=== PATIENT | male | born 1935 | race Caucasian/White ===

== ENCOUNTER → 2017-10-04 12:18 | Outpatient (CLI) | payer MEDICARE, SELFPAY ==
[2017-10-04 13:26] LABS: Absolute Neutrophil Count 2.6 X10^3/uL (2.0-7.7); Basophil# 0.04 X10^3/uL; Basophil% 0.9 % (0-1); Eosinophil# 0.13 X10^3/uL; Eosinophils% 2.8 % (0-5); Hematocrit 45.6 % (40-54); Hemoglobin 15.4 g/dl (13.0-16.5); Lymphocyte % 26.2 % (19-41); Mean Corp Hgb Conc 33.8 g/gl (32-36); Mean Corpuscular Hgb 30.6 pg (27.0-32.0); Mean Corpuscular Volume 90.5 fL (80-94); Mean Platelet Vol. 11.2 fl (6.2-12.0); Monocyte# 0.64 X10^3/uL; Neutrophil # 2.57 X10^3/uL (2.7-7.7); Neutrophil % 56.1 % (47-70); Platelet Count 117 K/mm3 (150-450); RBC Distribution Width CV 14.2 % (11.6-14.6); RBC Distribution Width SD 46.7 fl (35.1-43.9); Red Blood Count 5.04 M/mm3 (4.6-6.2); White Blood Count 4.6 K/mm3 (4.4-11.0)
[2017-10-04 13:29] LABS: POSITIVE COUNT NO; POSITIVE DIFFERENTIAL NO; POSITIVE MORPHOLOGY NO
[2017-10-04 14:00] LABS: ALB/GLOB Ratio 1.1 RATIO (0.9-2.4); AST(SGOT) 23 U/L (15-37); Alanine Aminotransfer ALT/SGPT 19 U/L (16-61); Albumin, Serum 4.1 g/dL (3.2-5.0); Alkaline Phosphatase 91 U/L (45-117); Anion Gap 7 (5-15); BUN 32 mg/dL (7-18); BUN/Creat Ratio 21.8 RATIO (10-20); Calcium,Total 8.6 mg/dL (8.5-10.1); Chloride 107 mmol/L (98-107); Creatinine, Serum 1.47 mg/dL (0.70-1.30); EST Glomerular Filtration Rate 49 mL/min (>60); Est Glom Filt Rate - Afr Amer 59 mL/min (>60); Globulin 3.6 g/dL (2.2-4.2); Glucose 80 mg/dL (74-106); PSA,Total - Annual Screen 1.06 ng/mL (0.00-4.00); Potassium 4.1 mmol/L (3.5-5.1); Protein, Total 7.7 g/dL (6.4-8.2); Sodium Level 143 mmol/L (136-145); Thyroid Stim Hormone (TSH) 2.74 uIU/mL (0.358-3.74)
== END ==
PROVIDERS: Family Provider Family Medicine; PCP Family Medicine; Visit Provider Family Medicine
DX: I25.10 Atherosclerotic heart disease of native coronary artery without angina pectoris (principal); R63.4 Abnormal weight loss; Z12.5 Encounter for screening for malignant neoplasm of prostate
CPT/HCPCS: 36415; 80053; 84153; 84443; 85025; G0103

== ENCOUNTER → 2017-11-09 13:27 | Outpatient (CLI) | payer MEDICARE, SELFPAY ==
--- NOTE | 2017-11-09 13:28 | STE_ITS ---
Reason For Study: S/P CABG Stress Results Protocol: Johny Protocol Maximum Predicted HR: 140 bpm Target HR: 119 bpm% Max imum Predicted HR: 108 % DurationHeart Rate Stage (mm:ss) (bpm) BP BASELINE 60 128/72 STAGE 1 3:00 12 7 162/80 STAGE 2 3:00 14 2 158/64 STAGE 3 0:15 15 1 / RECOVERY 87 152/74 Stress Duration: 6:15 mm:ss Maximum Stress HR: 151 bpm Baseline Echocardiogram Findings The estimated ejection fraction is 60 %. Stress Echo Wall motion Data Resting WMIntermediate WMStress WM Resting Wall Motion Wall Motion Stress No regional wall motion No regional wall motion abnormalities noted. abnormalities noted. EKG Data The baseline ECG demonstrates normal sinus rhythm with at rate of _ beats per minute. The patient exercised according to the regular Johny protocol for a total duration of 6:16. The maximum heart rate attained was 150 beats per minute. This was 107% of maximum predicted heart rate. The patient exercised into stage 3 of the Johny protocol. During stress, there were no ST or T wave changes noted to suggest ischemia. No clinical angina was noted. Interpretation Summary The estimated ejection fraction is 60 %. Normal adequate treadmill echocardiogram. Negative for ischemia by EKG and echocardiographic criteria. No anginal symptoms noted. Rare PVC noted. Appropriate blood pressure response to exercise. Average exercise capacity for age. Final LVEF of 75%. Test terminated due to target heart rate achieved and dyspnea. No complications. Ordering Physician: Vick Das Referring Physician: Vick Das Performed By: Linda Ortiz, HOLLYCS, RVT
== END ==
PROVIDERS: Family Provider Family Medicine; PCP Family Medicine; Visit Provider Internal Medicine Cardiovascular Disease
DX: I25.10 Atherosclerotic heart disease of native coronary artery without angina pectoris (principal); Z95.1 Presence of aortocoronary bypass graft; E78.5 Hyperlipidemia, unspecified
CPT/HCPCS: 93017; 93350

== ENCOUNTER → 2018-03-16 11:17 | Outpatient (CLI) | payer MEDICARE, SELFPAY | PROVIDERS: Family Provider Family Medicine; PCP Family Medicine; Visit Provider Family Medicine | DX: M25.552 Pain in left hip (principal); M54.5 Low back pain | CPT/HCPCS: 72110; 73502 ==

== ENCOUNTER → 2018-05-10 08:33 | Outpatient (CLI) | payer MEDICARE, SELFPAY ==
[2018-05-10 09:30] LABS: AST(SGOT) 16 U/L (15-37); Alanine Aminotransfer ALT/SGPT 22 U/L (16-61); Albumin, Serum 3.9 g/dL (3.2-5.0); Alkaline Phosphatase 98 U/L (45-117); Bilirubin, Direct 0.18 mg/dL (0.00-0.30); Cholesterol 130 mg/dL (200); Globulin 3.5 g/dL (2.2-4.2); High Density Lipoprotein 38 mg/dL; Protein, Total 7.4 g/dL (6.4-8.2); Triglycerides 122 mg/dL; Very Low Density Lipoprotein 24 mg/dL (5-40)
== END ==
PROVIDERS: Family Provider Family Medicine; PCP Family Medicine; Referring Provider Internal Medicine Cardiovascular Disease; Visit Provider Internal Medicine Cardiovascular Disease
DX: R07.9 Chest pain, unspecified (principal); E78.5 Hyperlipidemia, unspecified; I25.10 Atherosclerotic heart disease of native coronary artery without angina pectoris; Z95.1 Presence of aortocoronary bypass graft
CPT/HCPCS: 36415; 80061; 80076

== ENCOUNTER → 2019-03-02 | Outpatient (CLI) | payer MEDICARE, SELFPAY ==
[2018-11-15 10:43] VITALS: BMI 27.6
[2019-03-02 10:54] LABS: ALB/GLOB Ratio 1.3 RATIO (0.9-2.4); AST(SGOT) 21 U/L (15-37); Alanine Aminotransfer ALT/SGPT 18 U/L (16-61); Albumin, Serum 4.2 g/dL (3.2-5.0); Alkaline Phosphatase 96 U/L (45-117); Anion Gap 5 (5-15); BUN 26 mg/dL (7-18); BUN/Creat Ratio 16.7 RATIO (10-20); Calcium,Total 8.7 mg/dL (8.5-10.1); Chloride 110 mmol/L (98-107); Cholesterol 132 mg/dL (200); Creatinine, Serum 1.56 mg/dL (0.70-1.30); EST Glomerular Filtration Rate 46 mL/min (>60); Est Glom Filt Rate - Afr Amer 55 mL/min (>60); Globulin 3.3 g/dL (2.2-4.2); Glucose 104 mg/dL (74-106); High Density Lipoprotein 39 mg/dL; Potassium 4.3 mmol/L (3.5-5.1); Protein, Total 7.5 g/dL (6.4-8.2); Sodium Level 142 mmol/L (136-145); Triglycerides 140 mg/dL; Very Low Density Lipoprotein 28 mg/dL (5-40)
== END | disposition home or self-care (01) ==
LOC: LAB 09:47
PROVIDERS: Family Provider Family Medicine; PCP Family Medicine; Referring Provider Physician Assistant Medical; Visit Provider Physician Assistant Medical
DX: I10 Essential (primary) hypertension (principal); I25.10 Atherosclerotic heart disease of native coronary artery without angina pectoris; E78.5 Hyperlipidemia, unspecified; R07.9 Chest pain, unspecified
CPT/HCPCS: 36415; 80053; 80061

== ENCOUNTER → 2019-07-13 10:21 | Outpatient (CLI) | payer MEDICARE, SELFPAY ==
[2019-06-11 10:03] VITALS: BMI 26.5
--- NOTE | 2019-07-13 10:22 | STEWCON_ITS ---
Reason For Study: S/P CABG Stress Results Protocol: Johny Protocol WITH DEFINITY Maximum Predicted HR: 138 bpm Target HR: 117 bpm % Maximum Predicted HR: 96 % DurationHeart Rate Stage (mm:ss) (bpm) BP Comment BASELINE 62 128/78 STAGE 1 3:00 109 142/70 STAGE 2 3:00 133 144/60 RECOVERY 74 134/706 CC DEFINITY Stress Duration: 6:00 mm:ss Maximum Stress HR: 133 bpm Baseline Echocardiogram Findings The estimated ejection fraction is 55 %. Stress Echo Wall motion Data Resting WM Intermediate WM Stress WM Resting Wall Motion Wall Motion Stress Anterio-Basal: Mildly No regional wall motion hypokinetic. abnormalities noted. EKG Data The baseline ECG displays normal sinus rhythm. The patient exercised according to the regular Johny protocol for a total duration of 6:00. The maximum heart rate attained was 136 beats per minute. This was 98% of maximum predicted heart rate. The patient exercised into stage 3 of the Johny protocol. During stress, there were no ST or T wave changes noted to suggest ischemia. No clinical angina was noted. Interpretation Summary The estimated ejection fraction is 55 %. Anterio-Basal: Mildly hypokinetic Normal, adequate, treadmill echocardiogram. Negative for ischemia by EKG and echocardiographic criteria. No anginal symptoms noted. Rare PVCs noted. Patient had baseline anteroseptal hypokinesis which appeared to improve at peak exercise. Appropriate blood pressure response to exercise. Average exercise capacity for age. Test terminated due to the attainment target heart rate and leg discomfort. Decreased sensitivity due to poor echo windows requiring Definity agent. Patient tolerated procedure well. No complications. The study was technically difficult. Contrast injection was performed. Ordering Physician: Vick Das Referring Physician: Vick Das Performed By: Kristen Kibmle, SIMA, RVT
== END ==
PROVIDERS: Family Provider Family Medicine; PCP Family Medicine; Referring Provider Internal Medicine Cardiovascular Disease; Visit Provider Internal Medicine Cardiovascular Disease
DX: I25.10 Atherosclerotic heart disease of native coronary artery without angina pectoris (principal); E78.5 Hyperlipidemia, unspecified; I10 Essential (primary) hypertension; Z95.1 Presence of aortocoronary bypass graft
CPT/HCPCS: 93017; 93350; Q9957; A4216; C8928

== ENCOUNTER → 2020-03-28 11:33 | Outpatient (CLI) | payer MEDICARE, SELFPAY ==
[2020-03-28 10:13] VITALS: BMI 24.7
[2020-03-28 15:24] LABS: Absolute Lymphocyte Count 1.11 X10^3/uL (0.83-4.51); Absolute Neutrophil Count 3.4 X10^3/uL (2.0-7.7); Basophil# 0.06 X10^3/uL; Basophil% 1.2 % (0-1); Eosinophil# 0.07 X10^3/uL; Eosinophils% 1.4 % (0-5); Hematocrit 42.8 % (40-54); Hemoglobin 13.9 g/dL (13.0-16.5); Lymphocyte # 1.11 X10^3/ul (4.0); Mean Corp Hgb Conc 32.5 g/dL (32-36); Mean Corpuscular Hgb 30.6 pg (27.0-32.0); Mean Corpuscular Volume 94.3 fL (80-94); Monocyte# 0.42 X10^3/uL; Monocyte% 8.3 % (0-10); NRBC Flagged by Analyzer 0 % (0-5); Neutrophil # 3.37 X10^3/uL (2.7-7.7); Neutrophil % 66.9 % (47-70); Platelet Count 126 K/mm3 (150-450); RBC Distribution Width CV 13.2 % (11.6-14.6); RBC Distribution Width SD 45.4 fl (35.1-43.9); Red Blood Count 4.54 M/mm3 (4.6-6.2)
[2020-03-28 16:06] LABS: ALB/GLOB Ratio 1.4 RATIO (0.9-2.4); AST(SGOT) 20 U/L (15-37); Alanine Aminotransfer ALT/SGPT 18 U/L (16-61); Albumin, Serum 4.2 g/dL (3.2-5.0); Alkaline Phosphatase 109 U/L (45-117); Anion Gap 5 (5-15); BUN 30 mg/dL (7-18); Chloride 110 mmol/L (98-107); Creatinine, Serum 1.58 mg/dL (0.70-1.30); EST Glomerular Filtration Rate 45 mL/min (>60); Est Glom Filt Rate - Afr Amer 54 mL/min (>60); Globulin 3.1 g/dL (2.2-4.2); Glucose 108 mg/dL (74-106); Potassium 4.2 mmol/L (3.5-5.1); Prealbumin 22.2 mg/dL (20.0-40.0); Protein, Total 7.3 g/dL (6.4-8.2); Sodium Level 142 mmol/L (136-145)
== END ==
PROVIDERS: PCP Family Medicine; Visit Provider Family Medicine
DX: I25.10 Atherosclerotic heart disease of native coronary artery without angina pectoris (principal); N18.3 Chronic kidney disease, stage 3 (moderate); R63.4 Abnormal weight loss; Z12.5 Encounter for screening for malignant neoplasm of prostate
CPT/HCPCS: 36415; 80053; 84134; 84153; 84443; 85025; G0103

== ENCOUNTER → 2020-04-09 13:41 | Outpatient (CLI) | payer MEDICARE, SELFPAY ==
[2020-03-28 10:13] VITALS: BMI 24.7
--- NOTE | 2020-04-09 13:48 | CDU_ITS ---
Reason For Study: LIGHTHEADEDNESS Rt. Velocities/BP Lt. Velocities/BP Prox CCA 72/15 cm/sec. Prox CCA 62/13 cm/sec. Mid CCA 107/19 cm/sec. Mid CCA 99/18 cm/sec. Dist CCA 87/15 cm/sec. Dist CCA 78/22 cm/sec. Prox ICA 105/23 cm/sec. Prox ICA 73/22 cm/sec. Mid ICA 87/22 cm/sec. Mid ICA 83/26 cm/sec. Dist ICA 113/26 cm/sec. Dist ICA 83/21 cm/sec. Rt. ICA/CCA = 1.3. Lt. ICA/CCA = 1.1. Prox ECA 103/9 cm/sec. Prox ECA 97/6 cm/sec. Rt. Vert. 41/0 cm/sec. Lt. Vert. 58/15 cm/sec. Right Extracranial There is homogeneous, smooth atherosclerotic plaque noted in the right common carotid artery. There is heterogeneous, irregular atherosclerotic plaque noted in the right internal carotid artery. There is homogeneous, smooth atherosclerotic plaque noted in the right internal carotid artery. There is homogeneous, smooth atherosclerotic plaque noted in the right external carotid artery. Antegrade flow is noted in the right vertebral artery. Left Extracranial There is homogeneous, smooth atherosclerotic plaque noted in the left common carotid artery. There is homogeneous, smooth atherosclerotic plaque noted in the left internal carotid artery. There is homogeneous, smooth atherosclerotic plaque noted in the left external carotid artery. Antegrade flow is noted in the left vertebral artery. Procedure Carotid Duplex 06030. Exam performed in department. Interpretation Summary Minimal irregular plague at the proximal right internal carotid with <5O% stenosis <50% stenosis right external carotid Smooth plague at the proximal left internal carotid with <50% stenosis <50% stenosis left external carotid Patent, antegrade vertebrals bilaterally Ordering Physician: Grady Kimble Referring Physician: JOSE CAMERON Performed By: Linda Ortiz RDCS, RVT
== END ==
PROVIDERS: PCP Family Medicine; Referring Provider Nurse Practitioner Family; Visit Provider Nurse Practitioner Family
DX: I65.22 Occlusion and stenosis of left carotid artery (principal); I25.10 Atherosclerotic heart disease of native coronary artery without angina pectoris; Z95.1 Presence of aortocoronary bypass graft; I10 Essential (primary) hypertension; E78.00 Pure hypercholesterolemia, unspecified
CPT/HCPCS: 93880

== ENCOUNTER → 2021-01-15 | Outpatient (CLI) | payer MEDICARE, SELFPAY ==
[2020-10-22 11:01] VITALS: BMI 25.0
--- NOTE | 2021-01-15 11:00 | LES_PTH ---
PATIENT: MOHIT GURROLA LOC: [facility] U#:[id number] AGE/SX: 85/M ROOM: RE01/15/[address]: Dr. Geraldo Tripp DO : [id number] BED: DIS: 01/15/2021 SPEC #: [id number] RECD: 01/15/21 17:47 STATUS: ARACELI ROSHNI #: [id number] LUCY: 01/15/21 11:[address]: Geraldo Tripp DEPT: SURGICAL PATHOLOGY RECD BY: Sydnee Nascimento Tissues: Skin of neck, NOS Procedures: Surgery Specimen Level IV HEADER OPERATION: Punch biopsy posterior neck PRE-OP DIAGNOSIS: Thick skin posterior neck, rule out neoplasm TISSUE SUBMITTED: 2 mm punch biopsy, posterior neck MICROSCOPIC DIAGNOSIS Posterior neck skin, punch biopsy: Consistent with verrucous keratosis and extensive hyperkeratosis. Solar elastosis. Negative for malignancy. See comment. ALEAH:ralph 01/19/2021 COMMENT Correlation with clinical findings and appropriate follow up are necessary.. Case has been reviewed in consultation with Dr. Tillman who concurs with the above diagnosis. IDC:AM MICROSCOPIC DESCRIPTION Slides are reviewed. GROSS DESCRIPTION Received is one container labeled with the patient's name and not further designated. The specimen consists of a punch biopsy of chung-white skin measuring 0.2 cm in diameter and 0.2 cm in length. The entire specimen is submitted in one cassette. / ALEAH:ralph 01/16/21 TC:5 CPT: 29895
== END | disposition home or self-care (01) ==
LOC: LABSPEC 01-16 12:43
PROVIDERS: PCP Family Medicine; Referring Provider Family Medicine; Visit Provider Family Medicine
DX: L57.8 Other skin changes due to chronic exposure to nonionizing radiation (principal)
CPT/HCPCS: 88305

== ENCOUNTER 2021-07-12 21:44 | Emergency (ER) | payer MEDICARE, SELFPAY ==
[2021-07-12 21:46] VITALS: BP 137/99; PULSE 140; RESP 18; TEMP 36.9; O2SAT 99; BMI 22.4
[2021-07-12 21:59] VITALS: BP 119/70; PULSE 68; RESP 13; TEMP 36.6; O2SAT 95
--- NOTE | 2021-07-12 22:08 | EKG12_ITS ---
Test Reason : WEAKNESS Blood Pressure : / mmHG Vent. Rate : 062 BPM Atrial Rate : 062 BPM P-R Int : 160 ms QRS Dur : 136 ms QT Int : 410 ms P-R-T Axes : 071 -10 018 degrees QTc Int : 416 ms Normal sinus rhythm Right bundle branch block Abnormal ECG Confirmed by POLLY ISRAEL, ANGELITA ([id number]), editor greeting card CHANTELL SMITH ([id number]) on 07/13/2021 11:35:20 AM Referred By: HUYEN Confirmed By:ANGELITA MATIAS MD
--- NOTE | 2021-07-12 22:08 | CT_ITS ---
STUDY: CT BRAIN WITHOUT CONTRAST REASON FOR EXAM: Male, 85 years old. headache RADIATION DOSAGE (If Supplied By Facility): CTDIvol = ( 44.99 ) mGy, DLP = ( 812.98 ) mGycm TECHNIQUE: Transaxial CT imaging of the brain was performed without administration of intravenous contrast material. Individualized dose optimization techniques were used for this CT. COMPARISON: No relevant priors. FINDINGS: Normal soft tissue structures. Normal calvarium. Normal size ventricles and extra-axial spaces for the patient''s age. There are areas of decreased attenuation within the white matter tracts of the supratentorial brain, consistent with microvascular disease changes. Normal basal ganglia and thalami. Normal brainstem. Normal cerebellum. There is no intracranial hemorrhage. There are no findings of an acute ischemic infarction. Minimal ethmoid and left frontal sinus mucosal thickening. Mastoid air cells well aerated. CT/Brain/Head without Contrast IMPRESSION: No acute intracranial abnormality. Electronically Signed: Augustin Atkinson MD at 23:20 EST , Service support ,
--- NOTE | 2021-07-12 22:10 | EDS_ITS ---
HPI History of Present Illness Chief Complaint: Weakness Informant: patient and family Narrative Narrative: This patient's had about 4 to 5 days of total symptoms. He started with sneezing and runny nose. He still has that. He has developed some slight cough. He brings up some clear to slightly grayish sputum. No blood. He denies being short of breath. He has slight myalgias. He has not had nausea vomiting or diarrhea. No known fever. He also feels just slightly off balance. He also notes that his hearing has decreased. His ears do not hurt though. He does live independently. Past medical history is coronary artery disease Only medication is aspirin. Was prior on lisinopril but blood pressure stabilized without. Allergies Plavix and simvastatin Surgery: CABG 4 years ago Lives independently, never smoker [facility] Medical History Atherosclerosis of coronary artery of cur[place] heart without angina pectoris Basal cell carcinoma Essential hypertension Old myocardial infarction Pure hypercholesterolemia Seizures Home Medications albuterol sulfate [Ventolin HFA] 2 puff INHALATION Q4H PRN PRN #1 inhaler 07/13/21 [Rx Last Taken Unknown] Allergy/AdvReac Type Severity Reaction Status Date / Time clopidogrel [From Plavix] Allergy Rash Verified 07/12/21 21:50 simvastatin AdvReac night Verified 07/12/21 21:50 sweats Family History Father CAD (coronary artery disease) Brother CAD (coronary artery disease) Sister CAD (coronary artery disease) Surgical History H/O coronary artery bypass surgery (12/23/08) History of basal cell carcinoma excision History of coronary artery stent placement (04/2008) Social History Smoking Status: Never smoker alcohol intake: never substance use type: does not use caffeine: Yes ROS ROS ED Constitutional Constitutional ED: Denies chills, fever(s) or subjective Eyes Eyes: Denies blurry vision or change in vision ENT ENT ED: Reports rhinorrhea and other Details: See history of present illness. ; Denies ear pain or sore throat Cardiovascular Cardiovascular: Denies chest pain or palpitations Respiratory/Chest Respiratory/Chest: Reports cough and sputum; Denies dyspnea Gastrointestinal Gastrointestinal: Denies abdominal pain, diarrhea, nausea or vomiting Genitourinary Genitourinary ED: Denies dysuria Musculoskeletal Musculoskeletal: Reports myalgias Integumentary Denies rash Neurologic Neurologic: Reports other Details: Mild lightheadedness. ; Denies headache(s), paresthesias or weakness Psychiatric Psychiatric: Denies depression Endocrine Endocrinology: Denies polyuria Allergic/Immunologic Allergic/Immunologic ED: Denies urticaria EXAM Physical Exam Const Vital Signs: 07/12/21 21:46 07/12/21 21:59 07/12/21 22:24 Temperature 98.4 F 98 F Temperature Source Oral Oral Pulse Rate 140 H 68 68 Respiratory Rate 18 13 12 Respiratory Pattern Normal Blood Pressure 137/99 H 119/70 Blood Pressure Mean 111 86 Pulse Ox 99 95 Oxygen Delivery Method Room Air Room Air 07/13/21 00:03 Temperature Temperature Source Pulse Rate 63 Respiratory Rate 16 Respiratory Pattern Blood Pressure 126/62 H Blood Pressure Mean 83 Pulse Ox 96 Oxygen Delivery Method Room Air Positive well nourished and well developed; Negative for unkempt General Appearance ED: well developed and NAD; Negative for unkempt, cyanotic or diaphoretic HEENT Reports moist mucous membranes HEENT Narrative: Left tympanic membrane has a small amount of fluid but is not red or inflamed. Right has complete occlusion from cerumen. Negative for trauma or tenderness Eyes PERRL and EOMs intact bilaterally Chest Wall inspection of chest normal Resp normal respiratory effort and No clear to auscultation bilaterally Resp Narrative: Mildly coarse breath sounds with slight expiratory wheeze. He is still moving good air. He does not feel dyspneic. Auscultation: rhonchi and wheezes; Negative for rales Cardio regular rate and regular rhythm GI normal to inspection, nondistended, normoactive bowel sounds and non-tender Palpation: soft Back/Spine no CVA tenderness Extremity normal to inspection General Extremety ED: Negative for edema or tenderness General Extremity: Negative for edema Neuro oriented x3 Sensorium / Orientation: alert; Negative for orientation impaired Psych mental status grossly normal Appearance: Negative for unkempt Skin no rashes or lesions noted and no wounds MDM MDM MDM Narrative Medical decision making narrative: Per daughter, patient does have a history of getting frustrated with waiting. I believe I have convinced him to stay long enough to have an evaluation. He is certainly awake alert and appropriate. He more than has the capacity to make his own decisions. Patient's chest x-ray and CT showed no acute process. Blood work does show some dehydration but no other acute abnormality. White count and hemoglobin are normal. Patient is feeling better. His right tympanic membrane is now visible. There is some clear fluid but no sign of infection. The wax is gone. We gave him some IV fluids. He walked without difficulty does not feel lightheaded or dizzy. He wants to go home and I think this is a reasonable plan. We did discuss returning if he has dizziness, pain, dyspnea or any other symptoms. He does have some congestion and slight cough. But there is no sign of infiltrate. There is no white count. There is no fever. I do not think he needs antibiotics at this time. Lab Data Labs: Laboratory Results - last 24 hr 07/12/21 07/12/21 22:17 22:17 WBC 8.3 RBC 4.54 L Hgb 14.2 Hct 41.1 MCV 90.5 MCH 31.3 MCHC 34.5 RDW Std Deviation 44.1 H RDW Coeff of Noa 13.2 Plt Count 106 L MPV 10.7 Immature Gran % (Auto) 0.200 Neut % (Auto) 80.7 H Lymph % (Auto) 9.5 L [place] % (Auto) 9.2 Eos % (Auto) 0.0 Baso % (Auto) 0.4 Absolute Neuts (auto) 6.7 Absolute Lymphs (auto) 0.79 L Nucleated RBC % 0 Sodium 138 Potassium 4.1 Chloride 107 Carbon Dioxide 24.0 Anion Gap 7 BUN 40 H Creatinine 1.76 H Estim Creat Clear Calc 33.07 Est GFR (MDRD) Af Amer 48 L Est GFR (MDRD) Non-Af 39 L BUN/Creatinine Ratio 22.7 H Glucose 130 H Calcium 9.0 Troponin I High Sens 17 Radiography Diagnostic Testing: Clinical Impression(s) from Imaging Studies Brain CT 07/12/21 22:08 IMPRESSION: No acute intracranial abnormality. Electronically Signed: Augustin Atkinson MD at 23:20 EST , Service support , Chest X-Ray 07/12/21 22:55 IMPRESSION: No acute cardiopulmonary disease. Electronically Signed: Augustin Atkinson MD at 23:17 EST , Service support , EKG Initial EKG: Comments: EKG done for remote mild lightheadedness read by me shows a normal sinus rhythm with right bundle branch block. Overall rate of 62. No ectopy noted. No acute ST elevation or depression. WV interval is normal. QRS duration is long at 136 ms. QTc is normal. This is similar to an EKG from 05 March 2009. Discharge Plan Triage Chief Complaint: Weakness ED Provider: Carl Muhammad Dx/Rx/DC Orders Clinical Impression: URI (upper respiratory infection) Instructions: ED URI, Viral W/ Wheezing (Adult) Prescriptions: New albuterol sulfate [Ventolin HFA] 1 INHALER inhaler 2 puff inhalation Q4H PRN PRN (Reason: Wheezing) Qty: 1 RF: 0 Primary Care Provider: Geraldo Tripp Referrals: Geraldo Tripp DO [Primary Care Provider] - 3-5 Days if not improving Disposition Disposition: Home, Self Care
[2021-07-12] MEDS: Ipratropium/Albuterol Sulfate 3 ML AMPUL.NEB INHALATION (22:23)
[2021-07-12 22:24] VITALS: PULSE 68; RESP 12
[2021-07-12 22:27] LABS: Absolute Lymphocyte Count 0.79 X10^3/uL (0.83-4.51); Absolute Neutrophil Count 6.7 X10^3/uL (2.0-7.7); Basophil# 0.03 X10^3/uL; Basophil% 0.4 % (0-1); Hematocrit 41.1 % (40-54); Hemoglobin 14.2 g/dL (13.0-16.5); Lymphocyte # 0.79 X10^3/ul (0.83-4.51); Lymphocyte % 9.5 % (19-41); Mean Corp Hgb Conc 34.5 g/dL (32-36); Mean Corpuscular Hgb 31.3 pg (27.0-32.0); Mean Corpuscular Volume 90.5 fL (80-94); Mean Platelet Vol. 10.7 fl (6.2-12.0); Monocyte# 0.77 X10^3/uL; Monocyte% 9.2 % (0-10); NRBC Flagged by Analyzer 0 % (0-5); Neutrophil # 6.72 X10^3/uL (2.7-7.7); Neutrophil % 80.7 % (47-70); Platelet Count 106 K/mm3 (150-450); RBC Distribution Width CV 13.2 % (11.6-14.6); RBC Distribution Width SD 44.1 fl (35.1-43.9); Red Blood Count 4.54 M/mm3 (4.6-6.2); White Blood Count 8.3 K/mm3 (4.4-11.0)
[2021-07-12 22:47] LABS: Anion Gap 7 (5-15); BUN 40 mg/dL (7-18); BUN/Creat Ratio 22.7 RATIO (10-20); Chloride 107 mmol/L (98-107); Creatinine, Serum 1.76 mg/dL (0.70-1.30); EST Glomerular Filtration Rate 39 mL/min (>60); Est Glom Filt Rate - Afr Amer 48 mL/min (>60); Estimated Creatinine Clearance 33.07 ml/min; Glucose 130 mg/dL (74-106); Potassium 4.1 mmol/L (3.5-5.1); Sodium Level 138 mmol/L (136-145); Troponin-I HS 17 pg/mL (3.0-78.0)
--- NOTE | 2021-07-12 22:55 | RAD_ITS ---
STUDY: X-RAY CHEST REASON FOR EXAM: Male, 85 years old. cough TECHNIQUE: Single AP portable view of the chest. COMPARISON: None. FINDINGS: No focal infiltrates or effusions. No pneumothorax. Sternal wires are present. Normal size heart. Normal mediastinum and robert. Normal visualized pulmonary arteries. Normal visualized aortic arch and descending thoracic aorta. Normal visualized thoracic spine. Normal visualized ribs, clavicles, and shoulders. There is no demonstrated abnormality of the visualized soft tissue structures of the upper abdomen. RAD/Chest 1 View (Portable) IMPRESSION: No acute cardiopulmonary disease. Electronically Signed: Augustin Atkinson MD at 23:17 EST , Service support ,
[2021-07-13 00:03] VITALS: BP 126/62; PULSE 63; RESP 16; O2SAT 96
--- NOTE | 2021-07-13 00:43 | ED.RN ---
Per Dr. Muhammad, patient gotten out of bed to ambulate. Patient ambulates independently without weakness or dizziness. Dr. Muhammad notified
== END 2021-07-13 01:03 | disposition home or self-care (01) ==
PROVIDERS: Emergency Provider Emergency Medicine; PCP Family Medicine
DX: J06.9 Acute upper respiratory infection, unspecified (principal); I25.10 Atherosclerotic heart disease of native coronary artery without angina pectoris; I25.2 Old myocardial infarction; Z85.828 Personal history of other malignant neoplasm of skin; Z79.82 Long term (current) use of aspirin
CPT/HCPCS: 70450; 71045; 80048; 84484; 85025; 87426; 93005; 94640; 96360; 99285; J7040; A4216

== ENCOUNTER → 2021-12-30 | Outpatient (CLI) | payer MEDICARE, SELFPAY ==
[2021-12-30 12:25] LABS: Absolute Lymphocyte Count 1.21 X10^3/uL (0.83-4.51); Absolute Neutrophil Count 3.9 X10^3/uL (2.0-7.7); Basophil# 0.07 X10^3/uL; Basophil% 1.2 % (0-1); Eosinophil# 0.09 X10^3/uL; Eosinophils% 1.5 % (0-5); Hematocrit 43.6 % (40-54); Hemoglobin 14.8 g/dL (13.0-16.5); Lymphocyte # 1.21 X10^3/ul (0.83-4.51); Lymphocyte % 20.8 % (19-41); Mean Corp Hgb Conc 33.9 g/dL (32-36); Mean Corpuscular Hgb 31.1 pg (27.0-32.0); Mean Corpuscular Volume 91.6 fL (80-94); Mean Platelet Vol. 10.6 fl (6.2-12.0); Monocyte# 0.54 X10^3/uL; Monocyte% 9.3 % (0-10); NRBC Flagged by Analyzer 0 % (0-5); Neutrophil # 3.88 X10^3/uL (2.7-7.7); Neutrophil % 66.7 % (47-70); Platelet Count 144 K/mm3 (150-450); RBC Distribution Width CV 12.8 % (11.6-14.6); RBC Distribution Width SD 43.1 fl (35.1-43.9); Red Blood Count 4.76 M/mm3 (4.6-6.2); White Blood Count 5.8 K/mm3 (4.4-11.0)
[2021-12-30 13:09] LABS: ALB/GLOB Ratio 1.3 RATIO (0.9-2.4); AST(SGOT) 22 U/L (15-37); Alanine Aminotransfer ALT/SGPT 19 U/L (16-61); Albumin, Serum 4.2 g/dL (3.2-5.0); Alkaline Phosphatase 81 U/L (45-117); Anion Gap 5 (5-15); BUN 32 mg/dL (7-18); BUN/Creat Ratio 21.8 RATIO (10-20); Calcium,Total 9.2 mg/dL (8.5-10.1); Chloride 106 mmol/L (98-107); Cholesterol 204 mg/dL (200); Creatinine, Serum 1.47 mg/dL (0.70-1.30); EST Glomerular Filtration Rate 48 mL/min (>60); Est Glom Filt Rate - Afr Amer 59 mL/min (>60); Globulin 3.3 g/dL (2.2-4.2); Glucose 92 mg/dL (74-106); High Density Lipoprotein 45 mg/dL; PSA,Total - Annual Screen 1.15 ng/mL (0.00-4.00); Potassium 4.2 mmol/L (3.5-5.1); Protein, Total 7.5 g/dL (6.4-8.2); Sodium Level 139 mmol/L (136-145); Thyroid Stim Hormone (TSH) 3.03 uIU/mL (0.358-3.74); Triglycerides 192 mg/dL; Very Low Density Lipoprotein 38 mg/dL (5-40)
== END | disposition home or self-care (01) ==
LOC: LAB 10:20
PROVIDERS: PCP Family Medicine; Referring Provider Family Medicine; Visit Provider Family Medicine
DX: I25.10 Atherosclerotic heart disease of native coronary artery without angina pectoris (principal); D69.6 Thrombocytopenia, unspecified; N18.30 Chronic kidney disease, stage 3 unspecified; Z12.5 Encounter for screening for malignant neoplasm of prostate; E78.5 Hyperlipidemia, unspecified; R53.83 Other fatigue
CPT/HCPCS: 36415; 80053; 80061; 84134; 84153; 84443; 85025; G0103

== ENCOUNTER → 2022-04-23 | Outpatient (CLI) | payer MEDICARE, SELFPAY ==
--- NOTE | 2022-04-23 10:09 | ART_ITS ---
Reason For Study: decreased pulses Procedure A bilateral lower extremity continuous wave Doppler with analog waveform analysis,segmental pressures,and ankle brachial indexes without exercise. Left Segmental Pressures Left brachial= 139mmHg. Left posterior tibial artery = 144mmHg. Left dorsalis pedis artery = 144mmHg. The left posterior tibial artery waveforms are triphasic. The left dorsalis pedis waveforms are triphasic. Right Segmental Pressures Right brachial= 129mmHg. Right posterior tibial artery = 145mmHg. Right dorsalis pedis artery = 103mmHg. The right posterior tibial artery waveforms are triphasic. The right dorsalis pedis waveforms are triphasic. Indices The right resting ankle brachial index is 1.04. The right ankle brachial index by the posterior tibial artery is 1.04. The right ankle brachial index by the dorsalis pedis is 0.74. The left resting ankle brachial index is 1.04. The left ankle brachial index by the posterior tibial artery is 1.04. The left ankle brachial index by the dorsalis pedis is 1.04. VL/Lower Ext Art Exam w/o Exercis Interpretation Summary Right PT ankle-brachial index normal at 1.04 with a moderately diminished right DP index at 0.74. Interestingly the right posterior tibial Doppler waveform is only biphasic whil e the dorsalis pedis is triphasic. 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 Left lower extremity PT and DP ankle-brachial index at rest 1.04 and 1.04 respe ctively with normal triphasic Doppler waveforms Which is felt to be normal. Ordering Physician: Madyson Saldaña Referring Physician: Geraldo Tripp Performed By: Adrienne Badillo RVT, RDCS
== END | disposition home or self-care (01) ==
PROVIDERS: PCP Family Medicine; Referring Provider Physician Assistant Medical; Visit Provider Physician Assistant Medical
DX: I73.9 Peripheral vascular disease, unspecified (principal)
CPT/HCPCS: 93923

== ENCOUNTER 2022-06-12 19:24 | Emergency (ER) | payer MEDICARE, SELFPAY ==
[2022-06-12 19:25] VITALS: BP 154/97; PULSE 75; RESP 18; TEMP 36.6; O2SAT 98; BMI 23.9
--- NOTE | 2022-06-12 19:54 | EKG12_ITS ---
Test Reason : DIZZINESS Blood Pressure : / mmHG Vent. Rate : 055 BPM Atrial Rate : 055 BPM P-R Int : 176 ms QRS Dur : 122 ms QT Int : 424 ms P-R-T Axes : 070 -03 041 degrees QTc Int : 405 ms Sinus bradycardia Right bundle branch block Abnormal ECG Confirmed by POLLY ISRAEL, ANGELITA ([id number]), department editor CHANTELL SMITH ([id number]) on 06/15/2022 8:07:00 AM Referred By: HUYEN Confirmed By:ANGELITA MATIAS MD
--- NOTE | 2022-06-12 19:54 | CT_ITS ---
INDICATION: tingling right hand EXAMINATION: CT BRAIN - CT Head or Brain W/O Contrast Injection TECHNIQUE: Multiple axial images were obtained of the head without intravenous contrast. A radiation dose optimization technique was used for this scan. IV Contrast dosage and agent: None. COMPARISON: 07/12/2021 CT head FINDINGS: BRAIN PARENCHYMA: No intra- or extra-axial hemorrhage. No intracranial mass or mass effect. Blanca/white matter differentiation is maintained and there is no blurring of the basal ganglia. There is no hyperdense vessel. There are areas of decreased density in the periventricular white matter most commonly representing chronic small vessel ischemic changes. Posterior fossa structures are unremarkable. CSF SPACES: Appropriate for age. No hydrocephalus. Basal cisterns are patent. CALVARIUM, SKULL BASE, PARANASAL SINUSES AND MASTOID AIR CELLS: Clear. No discrete lytic or blastic abnormalities. ORBITS: Both globes, extraocular muscles, optic nerves and retrobulbar fat appear unremarkable. ASPECTS Score for Acute Strokes: 10 CT/Brain/Head without Contrast IMPRESSION: No acute intracranial pathology. Evidence of chronic small vessel ischemic changes, unchanged compared with the prior exam. Electronically Signed: lEoy Rodriguez DO at 20:41 EST ,
--- NOTE | 2022-06-12 19:56 | EDS_ITS ---
HPI History of Present Illness Chief Complaint: Dizziness Informant: patient and family Narrative Narrative: Patient comes in today because he checked his temperature and it was 91. He is here with family. Patient does live alone. He has had problems with peripheral neuropathy numbness tingling in his legs for years. He has had a year or so where his right hand will cramp up occasionally on him mostly when he is working on items. He states sometimes when he wakes up in the morning he is sweaty. But this has not happened for months. He states when he first gets up quickly he can sometimes be lightheaded for a minute and he has to be careful in the first few steps. He has fallen before but its been months. He has not been having chest pain. He states overall he feels good. He takes no medications at all now. He does have a history of prior four-vessel bypass about 10 years ago though. What prompted him to come in today was the temperature at 91. His family member thinks that the thermometer is broken. They state he looks completely normal to them [facility] Medical History Atherosclerosis of coronary artery of [place] heart without angina pectoris Basal cell carcinoma Claudication of both lower extremities Essential hypertension Old myocardial infarction Pure hypercholesterolemia Seizures Allergy/AdvReac Type Severity Reaction Status Date / Time clopidogrel [From Plavix] Allergy Rash Verified 06/12/22 19:28 simvastatin AdvReac night Verified 06/12/22 19:28 sweats Family History Father CAD (coronary artery disease) Brother CAD (coronary artery disease) Sister CAD (coronary artery disease) Surgical History H/O coronary artery bypass surgery (12/23/08) History of basal cell carcinoma excision History of coronary artery stent placement (04/2008) Social History Smoking Status: Never smoker alcohol intake: never substance use type: does not use caffeine: Yes ROS ROS ED Constitutional Constitutional ED: Reports other Details: See history of present ; Denies chills, fever(s), subjective, sweats or weight loss Eyes Eyes: Denies change in vision ENT ENT ED: Denies rhinorrhea or sore throat Cardiovascular Cardiovascular: Denies chest pain, palpitations or racing heartbeat Respiratory/Chest Respiratory/Chest: Denies cough or dyspnea Gastrointestinal Gastrointestinal: Denies abdominal pain, diarrhea, nausea or vomiting Genitourinary Genitourinary ED: Denies dysuria or hematuria Musculoskeletal Musculoskeletal: Denies arthralgias or myalgias Integumentary Denies rash Neurologic Neurologic: Reports paresthesias and other Details: No neuropathy. See history of present illness ; Denies headache(s) Endocrine Endocrinology: Denies polydipsia or polyuria Hematologic/Lymphatic Hematologic/Lymphatic: Denies easy bleeding or easy bruising Allergic/Immunologic Allergic/Immunologic ED: Denies urticaria EXAM Physical Exam Const Vital Signs: 06/12/22 19:25 Temperature 97.9 F Temperature Source Temporal Pulse Rate 75 Respiratory Rate 18 Blood Pressure 154/97 H Blood Pressure Mean 116 Pulse Ox 98 Oxygen Delivery Method Room Air Positive well nourished and well developed General Appearance ED: well developed and NAD HEENT Reports moist mucous membranes Eyes EOMs intact bilaterally Neck supple and no JVD Chest Wall inspection of chest normal Chest Narrative: Well-healed median sternotomy Resp normal respiratory effort and clear to auscultation bilaterally Cardio regular rate and regular rhythm GI normal to inspection, nondistended, normoactive bowel sounds and non-tender Palpation: soft Back/Spine no CVA tenderness Extremity normal to inspection Extremity Narrative: Peripheral extremities are warm. He has normal strength. Normal sensation. Normal pulses Neuro oriented x3 Sensorium / Orientation: alert; Negative for orientation impaired, lethargic or stuporous Psych mental status grossly normal Skin no rashes or lesions noted and no wounds MDM MDM MDM Narrative Medical decision making narrative: CT scan was unchanged. CBC including white count hemoglobin and platelets are normal. Electrolytes show mild elevation in the creatinine 1.73 but it has been there before. No acute process. Glucose is relatively normal at 109. Patient wants to go home. Family states he is normal. We discussed reasons for follow-up. Lab Data Attestation: I reviewed the patient's lab results. Labs: Laboratory Results - last 24 hr 06/12/22 06/12/22 19:46 19:46 WBC 7.1 RBC 4.61 Hgb 14.1 Hct 42.0 MCV 91.1 MCH 30.6 MCHC 33.6 RDW Std Deviation 43.8 RDW Coeff of Noa 13.2 Plt Count 150 MPV 10.5 Immature Gran % (Auto) 0.300 Neut % (Auto) 70.0 Lymph % (Auto) 20.1 Blaine % (Auto) 7.9 Eos % (Auto) 0.6 Baso % (Auto) 1.1 H Absolute Neuts (auto) 4.9 Absolute Lymphs (auto) 1.42 Nucleated RBC % 0 Sodium 139 Potassium 4.6 Chloride 108 H Carbon Dioxide 26.0 Anion Gap 5 BUN 35 H Creatinine 1.73 H Estim Creat Clear Calc 31.22 Est GFR (MDRD) Af Amer 49 L Est GFR (MDRD) Non-Af 40 L BUN/Creatinine Ratio 20.2 H Glucose 109 H Calcium 9.1 Radiography Diagnostic Testing: Clinical Impression(s) from Imaging Studies Brain CT 06/12/22 19:54 IMPRESSION: No acute intracranial pathology. Evidence of chronic small vessel ischemic changes, unchanged compared with the prior exam. Electronically Signed: Eloy Rodriguez DO at 20:41 EST , CT of the head shows no acute process. There are some chronic changes. Unchanged from prior. EKG Initial EKG: Comments: EKG done for nonspecific symptoms in an elderly male with heart disease. EKG read by me showed sinus rhythm with mildly bradycardic rate at 55. Right bundle branch block but no ventricular ectopy. Nonspecific ST changes consistent with a bundle branch block but no sign of acute ST elevation depression. HI interval is normal. QRS duration is a bit long. QTc is normal. Overall this is similar to prior of 12 July 2020 Discharge Plan Triage Chief Complaint: Dizziness ED Provider: Carl Muhammad Dx/Rx/DC Orders Clinical Impression: Encounter for medical assessment Instructions: Prep for HCP Visit Primary Care Provider: Geraldo Tripp Referrals: Geraldo Tripp DO [Primary Care Provider] - Keep Elaine appointment Disposition Disposition: Home, Self Care
[2022-06-12 20:11] LABS: Absolute Lymphocyte Count 1.42 X10^3/uL (0.83-4.51); Absolute Neutrophil Count 4.9 X10^3/uL (2.0-7.7); Basophil# 0.08 X10^3/uL; Basophil% 1.1 % (0-1); Eosinophil# 0.04 X10^3/uL; Eosinophils% 0.6 % (0-5); Hemoglobin 14.1 g/dL (13.0-16.5); Lymphocyte # 1.42 X10^3/ul (0.83-4.51); Lymphocyte % 20.1 % (19-41); Mean Corp Hgb Conc 33.6 g/dL (32-36); Mean Corpuscular Hgb 30.6 pg (27.0-32.0); Mean Corpuscular Volume 91.1 fL (80-94); Mean Platelet Vol. 10.5 fl (6.2-12.0); Monocyte# 0.56 X10^3/uL; Monocyte% 7.9 % (0-10); NRBC Flagged by Analyzer 0 % (0-5); Neutrophil # 4.93 X10^3/uL (2.7-7.7); Platelet Count 150 K/mm3 (150-450); RBC Distribution Width CV 13.2 % (11.6-14.6); RBC Distribution Width SD 43.8 fl (35.1-43.9); Red Blood Count 4.61 M/mm3 (4.6-6.2); White Blood Count 7.1 K/mm3 (4.4-11.0)
[2022-06-12 20:52] LABS: Anion Gap 5 (5-15); BUN 35 mg/dL (7-18); BUN/Creat Ratio 20.2 RATIO (10-20); Calcium,Total 9.1 mg/dL (8.5-10.1); Chloride 108 mmol/L (98-107); Creatinine, Serum 1.73 mg/dL (0.70-1.30); EST Glomerular Filtration Rate 40 mL/min (>60); Est Glom Filt Rate - Afr Amer 49 mL/min (>60); Estimated Creatinine Clearance 31.22 ml/min; Glucose 109 mg/dL (74-106); Potassium 4.6 mmol/L (3.5-5.1); Sodium Level 139 mmol/L (136-145)
[2022-06-12 21:25] VITALS: RESP 15
[2022-06-12 21:53] VITALS: BP 154/97; PULSE 75; RESP 16; O2SAT 98
== END 2022-06-12 21:54 | disposition home or self-care (01) ==
PROVIDERS: Emergency Provider Emergency Medicine; PCP Family Medicine; Visit Provider Emergency Medicine
DX: R42 Dizziness and giddiness (principal); I25.10 Atherosclerotic heart disease of native coronary artery without angina pectoris; I10 Essential (primary) hypertension; G62.9 Polyneuropathy, unspecified; E78.00 Pure hypercholesterolemia, unspecified; R20.2 Paresthesia of skin
CPT/HCPCS: 70450; 80048; 85025; 93005; 99283; A4216

== ENCOUNTER 2022-09-01 17:23 | Emergency (ER) | payer MEDICARE, SELFPAY ==
[2022-09-01 17:24] VITALS: BP 138/77; PULSE 68; RESP 15; TEMP 36.4; O2SAT 99; BMI 24.1
--- NOTE | 2022-09-01 22:16 | EDS_ITS ---
HPI History of Present Illness Chief Complaint: Rash Narrative Narrative: 86-year-old male presenting with his daughter out of concern for possible dehydration. Patient states about 2 weeks ago he developed a rash on his trunk and on his legs and he was very ill. He started to have nausea and vomiting. He reports that he went 1 full day without making urine. He did not tell his daughter this. When he told her this today she brought him to the emergency room. Patient states that he has been able to eat and drink and make urine and stool normally since that time. He has not had any fevers. The rash is resolved. He feels well. [facility] Medical History Atherosclerosis of coronary artery of [place] heart without angina pectoris Basal cell carcinoma Claudication of both lower extremities Essential hypertension Old myocardial infarction Pure hypercholesterolemia Seizures Allergy/AdvReac Type Severity Reaction Status Date / Time clopidogrel [From Plavix] Allergy Rash Verified 06/12/22 19:28 simvastatin AdvReac night Verified 06/12/22 19:28 sweats Family History Father CAD (coronary artery disease) Brother CAD (coronary artery disease) Sister CAD (coronary artery disease) Surgical History H/O coronary artery bypass surgery (12/23/08) History of basal cell carcinoma excision History of coronary artery stent placement (04/2008) Social History Smoking Status: Never smoker alcohol intake: never substance use type: does not use caffeine: Yes ROS ROS ED Constitutional Constitutional ED: Denies chills, fever(s) or sweats Eyes Eyes: Denies blurry vision or change in vision ENT ENT ED: Denies ear pain or sore throat Cardiovascular Cardiovascular: Denies chest pain, palpitations or racing heartbeat Respiratory/Chest Respiratory/Chest: Denies cough, dyspnea or sputum Gastrointestinal Gastrointestinal: Denies abdominal pain, constipation, diarrhea, nausea or vomiting Genitourinary Genitourinary ED: Denies dysuria, hematuria or urinary frequency Musculoskeletal Musculoskeletal: Denies arthralgias, myalgias or neck pain Integumentary Denies abscess, Abrasions or rash Neurologic Neurologic: Denies headache(s), paresthesias or weakness Psychiatric Psychiatric: Denies anxiety, depression, suicidal ideation or suicidal thoughts Endocrine Endocrinology: Denies polydipsia or polyuria EXAM Physical Exam Const Vital Signs: 09/01/22 17:24 Temperature 97.6 F L Temperature Source Temporal Pulse Rate 68 Respiratory Rate 15 Blood Pressure 138/77 H Blood Pressure Mean 97 Pulse Ox 99 Oxygen Delivery Method Room Air Positive well nourished General Appearance ED: NAD; Negative for pallor HEENT Reports moist mucous membranes Eyes PERRL and EOMs intact bilaterally Neck no lymphadenopathy Chest Wall inspection of chest normal and palpation of chest normal Resp normal respiratory effort and clear to auscultation bilaterally Cardio regular rate and regular rhythm GI normal to inspection, nondistended, normoactive bowel sounds Neuro oriented x3 and CN's II-XII intact bilaterally Sensorium / Orientation: alert Motor Exam: strength 5/5 throughout Psych mental status grossly normal Skin no rashes or lesions noted General Skin Exam: Negative for jaundice or pallor MDM MDM MDM Narrative Medical decision making narrative: After seeing the patient in the room I did offer to do basic lab work. CBC and BMP were ordered. I was then told the patient did not want to have lab work and left to the emergency room to go to bed. Impression: 1. History of rash Discharge Plan Triage Chief Complaint: Rash ED Provider: Hansel Caballero Dx/Rx/DC Orders Primary Care Provider: Geraldo Tripp Referrals: Geraldo Tripp, [Primary Care Provider] -
== END 2022-09-01 23:04 | disposition left against medical advice (07) ==
PROVIDERS: Emergency Provider Student in an Organized Health Care Education/Training Program; PCP Family Medicine; Visit Provider Student in an Organized Health Care Education/Training Program
DX: R21 Rash and other nonspecific skin eruption (principal); I10 Essential (primary) hypertension; Z85.828 Personal history of other malignant neoplasm of skin
CPT/HCPCS: 99282

== ENCOUNTER → 2022-10-26 | Outpatient (CLI) | payer MEDICARE, SELFPAY ==
[2022-10-26 16:27] LABS: Mucous, Urine 0 SEEN /hpf (<or=2+); Squamous Epithelial Cells - UA 0 SEEN /hpf (0-5)
[2022-10-26 17:20] LABS: Absolute Lymphocyte Count 0.61 X10^3/uL (0.83-4.51); Absolute Neutrophil Count 1.8 X10^3/uL (2.0-7.7); Basophil# 0.03 X10^3/uL; Basophil% 1.1 % (0-1); Hematocrit 45.3 % (40-54); Hemoglobin 14.8 g/dL (13.0-16.5); Lymphocyte # 0.61 X10^3/ul (0.83-4.51); Lymphocyte % 21.4 % (19-41); Mean Corp Hgb Conc 32.7 g/dL (32-36); Mean Corpuscular Volume 91.9 fL (80-94); Mean Platelet Vol. 11.4 fl (6.2-12.0); NRBC Flagged by Analyzer 0 % (0-5); Neutrophil % 63.1 % (47-70); POSITIVE COUNT YES; Platelet Count 79 K/mm3 (150-450); RBC Distribution Width CV 13.6 % (11.6-14.6); RBC Distribution Width SD 46.3 fl (35.1-43.9); Red Blood Count 4.93 M/mm3 (4.6-6.2); White Blood Count 2.9 K/mm3 (4.4-11.0)
[2022-10-26 17:46] LABS: Glucose, Dipstick Normal (Normal); Ketone-Dipstick 15 mg/dl (Negative); Leukocyte Esterase-Dipstick 25 /ul (Negative); Nitrite-Dipstick Negative (Negative); Occult Blood-Urine 250 /ul (Negative); Protein-Dipstick 30 mg/dl (Negative); Urine Urobilinogen 1 mg/dl (Normal)
[2022-10-26 17:47] LABS: Urine Bilirubin Dipstick 1 mg/dL (Negative)
[2022-10-26 17:50] LABS: Color, Urine AMBER (Yellow)
[2022-10-26 17:51] LABS: Urine Clarity Sl Cloudy (Clear)
[2022-10-26 17:54] LABS: ALB/GLOB Ratio 1.2 RATIO (0.9-2.4); AST(SGOT) 47 U/L (15-37); Alanine Aminotransfer ALT/SGPT 33 U/L (16-61); Alkaline Phosphatase 64 U/L (45-117); Anion Gap 7 (5-15); BUN 37 mg/dL (7-18); BUN/Creat Ratio 18.8 RATIO (10-20); Calcium,Total 8.3 mg/dL (8.5-10.1); Chloride 105 mmol/L (98-107); Creatinine, Serum 1.97 mg/dL (0.70-1.30); EST Glomerular Filtration Rate 34 mL/min (>60); Est Glom Filt Rate - Afr Amer 42 mL/min (>60); Globulin 3.2 g/dL (2.2-4.2); Glucose 96 mg/dL (74-106); Potassium 4.1 mmol/L (3.5-5.1); Protein, Total 7.2 g/dL (6.4-8.2); Sodium Level 135 mmol/L (136-145); Thyroid Stim Hormone (TSH) 1.02 uIU/mL (0.358-3.74)
[2022-10-26 17:55] LABS: Red Blood Cells-Urine 10-25 SEEN /hpf (0-5); White Blood Cells 0-5 SEEN /hpf (0-5)
[2022-10-26 17:58] LABS: Bacteria 1+ /hpf (None Seen); Transitional Epithelial - Ur 0-5 SEEN /hpf (0-5)
[2022-10-26 18:00] LABS: Coarse Granular Cast 0-5 SEEN /lpf (0-5 /lpf); Fine Granular Cast- Urine 0-5 SEEN /lpf (0-5)
[2022-10-26 18:04] LABS: Differential Indicated SCAN CRITERIA MET
[2022-10-26 18:07] LABS: Anisocytosis RARE; Macrocytosis RARE; Platelet Estimate MOD DEC (ADEQ); Red Cell Morphology N CHROM NORMAL (NORM C&C)
== END | disposition home or self-care (01) ==
LOC: LAB 16:21
PROVIDERS: PCP Family Medicine; Referring Provider Physician Assistant Medical; Visit Provider Physician Assistant Medical
DX: I25.10 Atherosclerotic heart disease of native coronary artery without angina pectoris (principal); I73.9 Peripheral vascular disease, unspecified; R55 Syncope and collapse; E78.00 Pure hypercholesterolemia, unspecified; I10 Essential (primary) hypertension; R41.0 Disorientation, unspecified
CPT/HCPCS: 36415; 80053; 81001; 84443; 85025

== ENCOUNTER 2022-12-14 12:44 | Emergency (ER) | payer MEDICARE, SELFPAY ==
[2022-12-14 12:45] VITALS: BP 130/59; PULSE 72; RESP 16; TEMP 37.1; O2SAT 99
[2022-12-14 12:49] VITALS: BMI 24.2
--- NOTE | 2022-12-14 13:18 | RAD_ITS ---
STUDY: X-RAY - RIGHT KNEE REASON FOR EXAM: Male, 87 years old. Pain after fall TECHNIQUE: 3 view(s) of the knee. COMPARISON: None. FINDINGS: Normal visualized distal femur. Normal visualized proximal tibia and fibula. Normal proximal tibiofibular articulation. Normal medial femorotibial compartment. Normal lateral femorotibial compartment. 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 The soft tissue structures are unremarkable. RAD/Knee 3 Views IMPRESSION: Mild arthrosis, no demonstrated fracture or suspicious osseous lesion Electronically Signed: Colin Luis MD at 14:32 EDT ,
--- NOTE | 2022-12-14 13:18 | RAD_ITS ---
STUDY: X-RAY - RIGHT WRIST REASON FOR EXAM: Male, 87 years old. Pain after a fall TECHNIQUE: 3 view(s) of the wrist were obtained. COMPARISON: None. FINDINGS: Normal visualized distal radius and ulna. Normal radiocarpal articulation. Normal distal radioulnar articulation. Normal carpal bones. Normal carpal articulations. Normal carpometacarpal articulation of the thumb. Normal second through fifth carpometacarpal articulations. Normal visualized metacarpal bones. The soft tissue structures are unremarkable. RAD/Wrist min 3 Views IMPRESSION: Normal x-ray examination of the wrist. Electronically Signed: Colin Luis MD at 14:33 EDT ,
--- NOTE | 2022-12-14 13:18 | RAD_ITS ---
STUDY: X-RAY - RIGHT HAND REASON FOR EXAM: Male, 87 years old. Pain after fall TECHNIQUE: 3 view(s) of the hand. COMPARISON: None. FINDINGS: Normal radiocarpal articulation. Normal distal radioulnar joint. Normal visualized carpal bones. Normal carpal articulations Normal carpometacarpal articulation of the thumb. Normal second through fifth carpometacarpal joints. Normal metacarpi. Normal metacarpophalangeal joint of the thumb. Normal interphalangeal joint of the thumb. Normal proximal and distal phalanges of the thumb. Normal metacarpophalangeal joints of the second through fifth fingers. Normal proximal and distal interphalangeal joints of the second through fifth fingers. Normal phalanges of the second through fifth fingers. The soft tissue structures are unremarkable. RAD/Hand Min 3 Views IMPRESSION: Normal x-ray examination of the hand. Electronically Signed: Colin Luis MD at 14:32 EDT ,
--- NOTE | 2022-12-14 14:53 | EDS_ITS ---
HPI HPI - Fall History of Present Illness Chief Complaint: Fall Informant: patient Occured/Mechanism Occurred: Today Mechanism/Context: Yes same level fall and Yes trip Usually ambulates: Without assistance Pain/Injury Location: Right wrist, right hand, right knee, and right face Pain Location: face, upper extremity and lower extremity Quality of Pain: Dull Worsened by: Nothing Relieved by: Nothing Associated Symptoms Associated Symptoms: Negative for Parasthesias, Weakness, Loss of function, Inability to ambulate, Loss of consciousness or Amnesia Narrative Narrative: Patient presents after a fall that occurred today. Patient states she tripped over a curb while going into the bank. Patient states he fell forward and injured his right knee, right hand, right wrist, and right face. Patient denies any loss of consciousness. Patient denies any paresthesias or weakness. Patient was able to stand and ambulate after the fall without difficulty. Patient is unsure of his last tetanus. Patient states he had an area on the ulnar aspect of his right wrist that was bleeding from a skin tear. PFSH PFSH Medical History Atherosclerosis of coronary artery of [place] heart without angina pectoris Basal cell carcinoma Claudication of both lower extremities Essential hypertension Old myocardial infarction Pure hypercholesterolemia Seizures Allergy/AdvReac Type Severity Reaction Status Date / Time clopidogrel [From Plavix] Allergy Rash Verified 12/14/22 12:49 simvastatin AdvReac night Verified 12/14/22 12:49 sweats Family History Father CAD (coronary artery disease) Brother CAD (coronary artery disease) Sister CAD (coronary artery disease) Surgical History H/O coronary artery bypass surgery (12/23/08) History of basal cell carcinoma excision History of coronary artery stent placement (04/2008) Social History Smoking Status: Never smoker alcohol intake: never substance use type: does not use caffeine: Yes ROS ROS ED Constitutional Constitutional ED: Denies chills or fever(s) Eyes Eyes: Denies blurry vision or change in vision ENT ENT ED: Denies rhinorrhea or sore throat Cardiovascular Cardiovascular: Denies chest pain or palpitations Respiratory/Chest Respiratory/Chest: Denies cough or dyspnea Gastrointestinal Gastrointestinal: Denies nausea or vomiting Genitourinary Genitourinary ED: Denies dysuria or hematuria Musculoskeletal Musculoskeletal: Denies back pain or neck pain Integumentary Denies abscess or rash Neurologic Neurologic: Denies headache(s) or weakness Allergic/Immunologic Allergic/Immunologic ED: Denies mouth swelling or urticaria EXAM Physical Exam Const Vital Signs: 12/14/22 12:45 12/14/22 14:05 Temperature 98.7 F Temperature Source Temporal Pulse Rate 72 Respiratory Rate 16 Respiratory Effort Normal Non-Labored Respiratory Depth Normal Respiratory Pattern Normal Blood Pressure 130/59 H Blood Pressure Mean 82 Pulse Ox 99 Oxygen Delivery Method Room Air Room Air Positive well nourished and well developed General Appearance ED: well developed and NAD HEENT Reports normocephalic HEENT Narrative: There is a mild contusion to the right cheek area. There is some ecchymosis. There is no bony crepitance or step-off. Eyes PERRL and EOMs intact bilaterally Resp normal respiratory effort and no retractions Cardio regular rate and regular rhythm Cardio Narrative: There are occasional ectopics noted. GI non-tender and non-distended Palpation: soft Extremity Extremity Narrative: There is mild tenderness over the right fifth metacarpal. There is some ecchymosis over this area. There is a superficial skin tear on the ulnar aspect of the right wrist. There is no active bleeding noted. There is no bony crepitance or step-off noted. There is no deformity noted. Range of motion was slightly limited in all motions of the right hand and right wrist secondary to pain. Radial pulses are equal bilaterally. Sensation was intact to light touch in the radial, median, and ulnar areas. Strength is 5/5 in the radial, median, and ulnar areas. There is mild tenderness over the anterior aspect of the right knee. There is no bony crepitance or step-off. There is full range of motion. Patient ambulates without difficulty. Neuro oriented x3, CN's II-XII intact bilaterally, moves all extremities, no focal motor deficits and no sensory deficits noted Jamison Coma Scale: document GCS findings Spontaneous Obeys Commands Oriented 15 Sensorium / Orientation: alert Motor Exam: strength 5/5 throughout Skin Skin Narrative: There is a superficial skin tear over the ulnar aspect of the right wrist. There is no bony crepitance or step-off. There is no obvious deformity noted. There is no active bleeding noted. MDM MDM MDM Narrative Medical decision making narrative: Differential diagnosis includes right hand contusion, right fifth metacarpal fracture, right wrist fracture, right wrist contusion, closed head injury, right knee contusion, and right patellar fracture. X-rays of the right hand will be obtained to assess for fracture. X-rays of the right wrist will be obtained to assess for fracture. X-rays of the right knee will be obtained to assess for fracture. Radiography Diagnostic Testing: Clinical Impression(s) from Imaging Studies Hand X-Ray 12/14/22 13:18 IMPRESSION: Normal x-ray examination of the hand. Electronically Signed: Colin Luis MD at 14:32 EDT , Knee X-Ray 12/14/22 13:18 IMPRESSION: Mild arthrosis, no demonstrated fracture or suspicious osseous lesion Electronically Signed: Colin Luis MD at 14:32 EDT , Wrist X-Ray 12/14/22 13:18 IMPRESSION: Normal x-ray examination of the wrist. Electronically Signed: Colin Luis MD at 14:33 EDT , X-rays of the right hand were obtained. There are 3 views. On my independent interpretation, there is no acute fracture. There is no dislocation. There is no soft tissue swelling. Radiologist also interpreted the x-rays and agrees. X-rays of the right wrist were obtained. There are 3 views. On my independent interpretation, there is no acute fracture. There is no dislocation. There is no soft tissue swelling. Radiologist also interpreted the x-rays and agrees. X-rays of the right knee were obtained. There are 3 views. On my independent interpretation, there is no acute fracture. There is no dislocation. There is no soft tissue swelling. Radiologist also interpreted the x-rays and agrees. Treatment and Re-Evaluation Narrative: Patient was advised of his findings. Old records were reviewed which showed the patient did have a tetanus booster in 2014. Because of this, we will withhold tetanus booster today. The skin tear was cleaned and dressed with a bacitracin dressing. Patient was instructed to change the dressing twice daily. Patient was instructed to follow-up with his primary care physician in 5 to 7 days. Patient understood and was agreeable with the plan. All questions were answered. Discharge Plan Triage Chief Complaint: Fall ED Provider: Lacho Maynard Dx/Rx/DC Orders Clinical Impression: Contusion of right hand, Tear of skin of right wrist, Contusion of right knee Instructions: ED Contusion, Lower Extremity, ED Contusion, Upper Extremity Primary Care Provider: Geraldo Tripp Referrals: Geraldo Tripp DO [Primary Care Provider] - 5-7 Days Disposition Disposition: Home, Self Care
[2022-12-14 15:13] VITALS: BP 139/84; PULSE 76; RESP 15; O2SAT 98
== END 2022-12-14 15:18 | disposition home or self-care (01) ==
PROVIDERS: Emergency Provider Emergency Medicine; PCP Family Medicine; Visit Provider Emergency Medicine
DX: S60.221A Contusion of right hand, initial encounter (principal); S80.01XA Contusion of right knee, initial encounter; I25.10 Atherosclerotic heart disease of native coronary artery without angina pectoris; I10 Essential (primary) hypertension; S61.511A Laceration without foreign body of right wrist, initial encounter; E78.00 Pure hypercholesterolemia, unspecified; W01.10XA Fall on same level from slipping, tripping and stumbling with subsequent striking against unspecified object, initial encounter; Y92.510 Bank as the place of occurrence of the external cause
CPT/HCPCS: 73110; 73130; 73562; 99284

== ENCOUNTER → 2023-07-05 | Outpatient (CLI) | payer MEDICARE, SELFPAY | END | disposition home or self-care (01) | PROVIDERS: PCP Family Medicine; Visit Provider Family Medicine | DX: N39.0 Urinary tract infection, site not specified (principal) | CPT/HCPCS: 87086; 87088 ==